=== PATIENT | male | born 2000 | race Caucasian/White ===

== ENCOUNTER 2023-09-18 01:50 | Emergency (ER) | payer SELFPAY ==
[2023-09-18] MEDS: SODIUM CHLORIDE 0.9% 1,000 ML IV ONE (02:11)
[2023-09-18] MEDS: MORPHINE SULFATE 4 MG/ML INJ (FOR IV/IM USE) IV STA (02:16)
[2023-09-18] MEDS: CEFAZOLIN 1000MG PREMIX 50 ML IV ONE (02:17)
[2023-09-18 02:44] LABS: BASOPHILS % 0.2 % (0.0-2.0); EOSINOPHILS % 1.1 % (0.0-5.0); HEMATOCRIT. 40.2 % (42.0-52.0); HEMOGLOBIN. 13.4 g/dL (14.0-18.0); LYMPHOCYTES % 40.6 % (20.0-50.0); MEAN CORPUSCULAR HEMOGLOBIN 29.2 pg (28.0-32.0); MEAN CORPUSCULAR HGB CONC 33.2 g/dL (31.0-37.0); MEAN CORPUSCULAR VOLUME 87.9 fL (80.0-94.0); MEAN PLATELET VOLUME 7.4 fl (7.4-10.4); MONOCYTES % 5.5 % (2.0-8.0); NEUTROPHILS % 52.6 % (40.0-76.0); PLATELET 250 x1000/uL (130-400); RED BLOOD CELL COUNT 4.58 mill/uL (4.7-6.1); RED CELL DISTRIBUTION WIDTH 12.6 % (11.6-14.6); WHITE BLOOD COUNT 6.2 x1000/uL (4.5-11.0)
[2023-09-18 02:54] LABS: CHLORIDE 111 mEq/L (98-107); POTASSIUM 3.4 mEq/L (3.5-5.1); SODIUM 142 mEq/L (136-145)
[2023-09-18 02:55] LABS: CALCIUM 8.1 mg/dL (8.7-10.4); CARBON DIOXIDE 21 mEq/L (21-32)
[2023-09-18 03:00] LABS: CREATININE 0.9 mg/dL (0.6-1.3); GLUCOSE 109 mg/dL (70-105); UREA NITROGEN BLOOD 8 mg/dL (9-23)
[2023-09-18 03:02] LABS: ALANINE AMINOTRANSFERASE 9 IU/L (10-49); ALBUMIN 4.1 g/dL (3.2-4.8); ASPARTATE AMINOTRANSFERASE 13 IU/L (<34); BILIRUBIN DIRECT 0.1 mg/dL (<=3.0); BILIRUBIN TOTAL 0.3 mg/dL (0.1-1.0); PARTIAL THROMBOPLASTIN TIME 25.4 sec (23.4-31.0); PROTEIN TOTAL 6.2 g/dL (6.0-8.3)
[2023-09-18 03:58] LABS: BASOPHILS % 0.2 % (0.0-2.0); EOSINOPHILS % 0.4 % (0.0-5.0); HEMOGLOBIN. 13.3 g/dL (14.0-18.0); LYMPHOCYTES % 17.7 % (20.0-50.0); MEAN CORPUSCULAR HEMOGLOBIN 29.8 pg (28.0-32.0); MEAN CORPUSCULAR HGB CONC 34.1 g/dL (31.0-37.0); MEAN CORPUSCULAR VOLUME 87.3 fL (80.0-94.0); MEAN PLATELET VOLUME 7.4 fl (7.4-10.4); MONOCYTES % 4.9 % (2.0-8.0); NEUTROPHILS % 76.8 % (40.0-76.0); PLATELET 264 x1000/uL (130-400); RED BLOOD CELL COUNT 4.46 mill/uL (4.7-6.1); RED CELL DISTRIBUTION WIDTH 12.4 % (11.6-14.6); WHITE BLOOD COUNT 9.2 x1000/uL (4.5-11.0)
[2023-09-18] MEDS: LIDOCAINE HCL 1% 20ML VIAL INFIL ONE (04:29)
[2023-09-18] MEDS ORDERED: CEPH500T MT (04:47)
[2023-09-18] MEDS: TETANUS, DIPHTHERIA, PERTUSSIS VAC/PF 0.5ML (>10YR OLD) IM ONE (04:52)
[2023-09-18] MEDS ORDERED: IOHEXOL-300 100 ML BOTTLE ONE (05:45)
[2023-09-18 06:05] VITALS: BP 26/64; PULSE 94; RESP 14
== END 2023-09-18 06:06 | disposition home or self-care (01) ==
LOC: EDBD 01:50 → ER 01:50
DX: S31.010A Laceration without foreign body of lower back and pelvis without penetration into retroperitoneum, initial encounter (principal); W34.00XA Accidental discharge from unspecified firearms or gun, initial encounter; Y93.89 Activity, other specified; Y92.89 Other specified places as the place of occurrence of the external cause; Y99.8 Other external cause status
CPT/HCPCS: 80076; 80048; 83690; 85025; 85610; 85730; 86850; 86900; 86901; 36415; 71045; 70450; 71260; 74177; 90715; 12004; 90471; 96365; 96375; 99291; Q9967; J0690; J3490; J2270; J7030; Z7610